=== PATIENT | female | born 1995 | race Caucasian/White ===

== ENCOUNTER 2021-02-19 16:30 | Emergency (ER) | payer MEDICAID, SELFPAY ==
[2021-02-19 18:01] VITALS: BP 143/102; PULSE 106; RESP 18; TEMP 36.7; O2SAT 96; BMI 41.5
[2021-02-19 18:30] LABS: COVID-19 Test Negative (Negative)
--- NOTE | 2021-02-19 20:53 | ED.URI ---
HPI - URI/Sore Throat General Chief Complaint: Upper Respiratory Symptoms Stated Complaint: cough sore throat Time Seen by Provider: 02/19/21 20:53 History of Present Illness HPI Narrative: Patient complains of mild sore throat runny nose , no shortness of breath no chest pain no abdominal pain no nausea vomiting Related Data Allergies Allergy/AdvReac Type Severity Reaction Status Date / Time No Known Allergies Allergy Verified 02/19/21 18:05 Review of Systems Review of Systems: Negatives are no fever no chills no dizziness no weakness no fainting no headache no stiff neck no chest pain no shortness of breath no abdominal pain no nausea vomiting or diarrhea Yes all other systems are reviewed and are negative PMFSH Past Medical History Source: nursing notes reviewed Medical History (Updated 02/20/21 @ 00:02 by Ada Ruth) Asthma Sickle cell anemia Social History Social History Advance Directives: No Advance Directives Information Provided: Yes Physical Exam Vital Signs: Vital Signs: Last Vital Signs Temp 98.1 F 02/19/21 18:01 Pulse 106 H 02/19/21 18:01 Resp 18 02/19/21 18:01 BP 143/102 H 02/19/21 18:01 Pulse Ox 96 02/19/21 18:01 BMI result Body Mass Index 41.5 General appearance no acute distress The eyes no redness or discharge The sinuses are nontender The pharynx no redness swelling or exudate, mucous membranes are moist Neck is supple The chest is clear to auscultation bilateral Heart no murmur Abdomen soft nontender Extremities full range of motion times Course Course Course Narrative: COVID testing was negative but patient has very typical COVID symptoms and other family members she lives with have COVID so I advised her the test is probably mistaken and she likely has COVID Shows very well appearing and was discharged MDM - URI/Sore Throat Lab Data Labs: Lab Results 02/19/21 Range/Units 18:08 COVID-19 ([facility]ENIA) Negative (Negative) COVID-19 Clin Com See Note Discharge Plan Discharge Clinical Impression: Acute viral syndrome Patient Disposition: Home, Self-Care Additional Instructions: COVID test was negative but can miss some cases Because you have other family members with COVID and have typical symptoms be careful to wear mask and stay out of crowded places to protect others Your well-appearing today but if anything gets worse you should return to the ER any time Interventions: ED Discharge Assessment Last Done: 02/19/21 21:17 Discharge Date/Time: 02/19/21 21:20
--- NOTE | 2021-02-19 21:17 | PC.NURSE ---
patient wasnt seen by this nurse, pt was discharged by provider
== END 2021-02-19 21:20 | disposition home or self-care (01) ==
PROVIDERS: Emergency Provider Emergency Medicine Emergency Medical Services
DX: B34.9 Viral infection, unspecified (principal); J45.909 Unspecified asthma, uncomplicated; Z20.822 Contact with and (suspected) exposure to COVID-19
CPT/HCPCS: 36415; 87635; 99283

== ENCOUNTER 2022-03-14 01:51 | Emergency (ER) | payer MEDICAID, SELFPAY ==
--- NOTE | ~2022-03-14 | CT_ITS ---
EXAMINATION: CT ABDOMEN AND PELVIS WITHOUT CONTRAST CLINICAL INFORMATION: Left lower quadrant pain COMPARISON: None TECHNIQUE: Multidetector volumetric imaging was performed from the superior aspect of the liver through the pubic symphysis. Sagittal and coronal reformatted images were obtained on the technologist's workstation. This CT examination was performed using dose optimization techniques as appropriate, variously including the following: *Automated exposure control *Adjustment of mA and/or kV according to patient size (this includes techniques or standardized protocols for targeted exams where dose is matched to indication/reason for exam; i.e. extremities or head) *Use of iterative reconstruction technique DLP: 1263 mGy-cm FINDINGS: LUNG BASES: The visualized lung bases are unremarkable. LIVER, GALLBLADDER, AND BILIARY TREE: The liver is normal in size, shape, and attenuation. No focal hepatic lesion or biliary ductal dilatation is present. Cholecystectomy. PANCREAS: Unremarkable. SPLEEN: Unremarkable. ADRENAL GLANDS: Unremarkable. KIDNEYS AND URETERS: The kidneys are normal in size, shape, and attenuation. No hydronephrosis, hydroureter, or calculi seen. No perinephric stranding. BLADDER: Unremarkable. GASTROINTESTINAL TRACT: The stomach is unremarkable. Normal caliber small bowel. No obstruction. Normal appendix. No colonic wall thickening or inflammation. No free air or free fluid. ABDOMINAL WALL: No abdominal wall hernia. Soft tissue density anterior to the rectus musculature at the pelvis. This may be scarring. LYMPH NODES: No lymphadenopathy. Appearance of a yulia mesentery . VASCULAR: Unremarkable. PELVIC VISCERA: The uterus and adnexa are unremarkable. OSSEOUS STRUCTURES: Unremarkable. CT/CT abdomen pelvis wo IV con IMPRESSION: No acute findings in the abdomen or pelvis. No inflammatory changes. Fleischner guidelines were followed.
[2022-03-14 01:53] VITALS: BP 139/84; PULSE 126; RESP 18; TEMP 36.8; O2SAT 97; BMI 51.5
--- NOTE | 2022-03-14 02:09 | ED_ITS ---
HPI - Abdominal Pain General Chief Complaint: Abdominal Pain Stated Complaint: left lower abd pain Time Seen by Provider: 03/14/22 02:08 Source: patient Mode of arrival: ambulatory Limitations: no limitations History of Present Illness HPI narrative: Patient with no significant past medical history complaining of left lower abdominal pain off and on for few days but got worse for last 24 hours increases on ambulation, no nausea no vomiting no diarrhea no blood in stool no urinary symptoms patient does have a family history of kidney stone but patient never had kidney stones denies any urinary symptoms has a good appetite patient also has history of ovarian cyst Related Data Previous Rx's Medication Instructions Recorded ibuprofen 600 mg tablet 600 mg PO Q6H PRN fever or pain 03/14/22 #30 tabs Allergies Allergy/AdvReac Type Severity Reaction Status Date / Time No Known Allergies Allergy Verified 02/19/21 18:05 Review of Systems Review of Systems Yes all other systems are reviewed and are negative [facility] Past Medical History Medical History Asthma Sickle cell anemia Social History Social History Alcohol intake: never Smoked in Last 30 Days: No Use of substances other than those prescribed or required for medical reasons: No Advance Directives: No Advance Directives Information Provided: Yes Physical Exam ED Vital Signs: Vital Signs - 24 hr 03/14/22 01:53 03/14/22 03:38 Temperature 98.3 F 98.1 F Pulse Rate 126 H 114 H Respiratory Rate 18 20 Blood Pressure 139/84 114/61 Pulse Oximetry 97 97 Oxygen Delivery Method Room Air Room Air BMI result Body Mass Index 51.5 Appearance: Alert. Oriented X3. No acute distress. Obese patient Eyes: No pallor/ icterus ENT: Pharynx normal. Oral Mucosa moist Neck: Normal inspection. Neck supple. CVS: Normal heart rate and rhythm. Pulses normal. Respiratory: No respiratory distress. Equal air entry bilateral, no wheezing/rales/rhonchi Abdomen: Soft the deep tenderness left lower quadrant , Bowel sounds are present, no mass palpable, no CVA tenderness Skin: Skin warm and dry. Normal skin color. Normal skin turgor. Extremities: No lower extremity edema. No calf tenderness Neuro: Oriented X 3. No motor deficit. Medical Decision Making Medical Decision Making MDM Narrative: Patient's CT scan negative for acute labs are stable possible patient had ovarian cyst which has ruptured no free fluid in the pelvis patient looks comfortable discharge patient home Lab Data 03/14/22 02:14 03/14/22 02:14 Labs: Lab Results 03/14/22 03/14/22 03/14/22 Range/Units 02:14 02:14 02:24 WBC 8.8 (4.8-10.8) X10*3/uL RBC 4.81 (4.20-5.50) X10*6/uL Hgb 11.9 L (12.0-16.0) g/dl Hct 35.5 L (37.0-47.0) % MCV 73.8 L (80.0-98.0) fL MCH 24.7 L (27.0-33.0) pg MCHC 33.5 (31.0-35.0) g/dl RDW 14.3 (11.0-16.0) % Plt Count 387 (160-400) X10*3/uL MPV 9.5 (9.4-12.3) fL Immature Gran % (Auto) 0.2 (0.0-0.4) % Neut % (Auto) 44.3 L (45-73) % Lymph % (Auto) 44.0 H (20-40) % [place] % (Auto) 8.8 (2-11) % Eos % (Auto) 2.2 (0-4) % Baso % (Auto) 0.5 (0-2) % Lymph # (Auto) 3.9 (1.2-4.9) X10*3/uL [place] # (Auto) 0.8 (0.1-1.2) X10*3/uL Eos # (Auto) 0.2 (0.0-0.4) X10*3/uL Baso # (Auto) 0.0 (0.0-0.2) X10*3/uL Abs Immat Gran (auto) 0.02 (0.00-0.03) X10*3/uL Absolute Neuts (auto) 3.9 (2.0-8.3) x10*3/uL Absolute Nucleated RBC 0.000 (0.0-0.012) X10*3/uL Nucleated RBC % (auto) 0.0 (0.0-0.2) /100WBC Sodium 139 (135-145) mmol/L Potassium 4.3 (3.3-5.1) mmol/L Chloride 103 (96-108) mmol/L Carbon Dioxide 25 (22-29) mmol/L Anion Gap 15 (12-20) BUN 10 (9-16) mg/dL Creatinine 0.69 (0.5-1.4) mg/dL Estim Creat Clear Calc 168.6 Estimated GFR > 60 Random Glucose 110 (60-115) mg/dL Calcium 9.5 (8.4-10.2) mg/dL Total Bilirubin < 0.2 (0.0-1.0) mg/dL Direct Bilirubin < 0.2 (0.0-0.5) mg/dL AST 14 (5-31) U/L ALT 12 (0-31) U/L Alkaline Phosphatase 56 (39-117) U/L Total Protein 7.6 (6.5-8.0) g/dL Albumin 3.8 (3.5-5.0) g/dL Urine Color Yellow Urine Appearance Clear Urine pH 5.0 (5.0-9.0) Ur Specific [place] 1.015 (1.005-1.025) Urine Protein Negative (Neg-Trace) mg/dL Urine Glucose (UA) Negative (Negative) mg/dL Urine Ketones Negative (Negative) mg/dL Urine Blood Negative (Negative) Urine Nitrite Negative (Negative) Ur Leukocyte Esterase Negative (Negative) Urine Test (NEGATIVE) 03/14/22 Range/Units 02:24 WBC (4.8-10.8) X10*3/uL RBC (4.20-5.50) X10*6/uL Hgb (12.0-16.0) g/dl Hct (37.0-47.0) % MCV (80.0-98.0) fL MCH (27.0-33.0) pg MCHC (31.0-35.0) g/dl RDW (11.0-16.0) % Plt Count (160-400) X10*3/uL MPV (9.4-12.3) fL Immature Gran % (Auto) (0.0-0.4) % Neut % (Auto) (45-73) % Lymph % (Auto) (20-40) % [place] % (Auto) (2-11) % Eos % (Auto) (0-4) % Baso % (Auto) (0-2) % Lymph # (Auto) (1.2-4.9) X10*3/uL [place] # (Auto) (0.1-1.2) X10*3/uL Eos # (Auto) (0.0-0.4) X10*3/uL Baso # (Auto) (0.0-0.2) X10*3/uL Abs Immat Gran (auto) (0.00-0.03) X10*3/uL Absolute Neuts (auto) (2.0-8.3) x10*3/uL Absolute Nucleated RBC (0.0-0.012) X10*3/uL Nucleated RBC % (auto) (0.0-0.2) /100WBC Sodium (135-145) mmol/L Potassium (3.3-5.1) mmol/L Chloride (96-108) mmol/L Carbon Dioxide (22-29) mmol/L Anion Gap (12-20) BUN (9-16) mg/dL Creatinine (0.5-1.4) mg/dL Estim Creat Clear Calc Estimated GFR Random Glucose (60-115) mg/dL Calcium (8.4-10.2) mg/dL Total Bilirubin (0.0-1.0) mg/dL Direct Bilirubin (0.0-0.5) mg/dL AST (5-31) U/L ALT (0-31) U/L Alkaline Phosphatase (39-117) U/L Total Protein (6.5-8.0) g/dL Albumin (3.5-5.0) g/dL Urine Color Urine Appearance Urine pH (5.0-9.0) Ur Specific [place] (1.005-1.025) Urine Protein (Neg-Trace) mg/dL Urine Glucose (UA) (Negative) mg/dL Urine Ketones (Negative) mg/dL Urine Blood (Negative) Urine Nitrite (Negative) Ur Leukocyte Esterase (Negative) Urine Test NEGATIVE (NEGATIVE) Medications Administered Discontinued Medications Generic Name Dose Route Start Last Admin Trade Name Freq PRN Reason Stop Dose Admin Sodium Chloride 1,000 mls @ 999 mls/hr 03/14/22 02:17 03/14/22 03:40 Ns IV 03/14/22 03:17 Infused .Q1H1M ONE Infusion Ketorolac Tromethamine 30 mg 03/14/22 02:17 03/14/22 02:34 Ketorolac Tromethamine 30 Mg/Ml Vial IVPUSH 03/14/22 02:18 30 mg ONCE ONE Administration Discharge Plan Discharge Clinical Impression: Abdominal pain Patient Disposition: Home, Self-Care Instructions: Abdominal Pain (ED) Additional Instructions: Cause of abdominal pain is not very clear Your CT scan of the abdomen and labs are normal Ibuprofen for pain Follow with PCP La causa del dolor abdominal no est? muy andra Barahona tomograf?a computarizada del abdomen y los laboratorios son normales ibuprofeno para el dolor Seguir con PCP Prescriptions: New ibuprofen 600 mg tablet 600 mg PO Q6H PRN (Reason: fever or pain) Qty: 30 0RF Interventions: ED Discharge Assessment Last Done: 03/14/22 04:19 Discharge Date/Time: 03/14/22 04:18 Print Language: Azeri
[2022-03-14 02:18] LABS: MANUAL DIFF FLAG NO
[2022-03-14 02:19] LABS: Basophils Percent Auto 0.5 % (0-2); Eosinophils Absolute Auto 0.2 X10*3/uL (0.0-0.4); Eosinophils Percent Auto 2.2 % (0-4); Hematocrit 35.5 % (37.0-47.0); Hemoglobin 11.9 g/dl (12.0-16.0); Imm Gran Abs Auto 0.02 X10*3/uL (0.00-0.03); Imm Gran Pct Auto 0.2 % (0.0-0.4); Lymphocytes Absolute Auto 3.9 X10*3/uL (1.2-4.9); Mean Corpuscular HGB Conc 33.5 g/dl (31.0-35.0); Mean Corpuscular Hemoglobin 24.7 pg (27.0-33.0); Mean Corpuscular Volume 73.8 fL (80.0-98.0); Mean Platelet Volume 9.5 fL (9.4-12.3); Monocytes Absolute Auto 0.8 X10*3/uL (0.1-1.2); Monocytes Percent Auto 8.8 % (2-11); Neutrophils Absolute Auto 3.9 x10*3/uL (2.0-8.3); Neutrophils Percent Auto 44.3 % (45-73); Platelet Count 387 X10*3/uL (160-400); Red Blood Count 4.81 X10*6/uL (4.20-5.50); Red Cell Distribution Width 14.3 % (11.0-16.0); White Blood Count 8.8 X10*3/uL (4.8-10.8)
[2022-03-14 02:32] LABS: Appearance Urine Clear; Color Urine Yellow; Glucose Urine UA Negative (Negative); Leukocyte Esterase Urine Negative (Negative); Nitrite Urine Negative (Negative); Specific Gravity - Urine 1.015 (1.005-1.025); Urine Blood Negative (Negative); Urine Ketones Negative (Negative); Urine Protein Negative (Neg-Trace)
[2022-03-14 02:33] LABS: UPreg QC Valid YES; Urine Pregnancy NEGATIVE (NEGATIVE)
[2022-03-14] MEDS: 0.9 % Sodium Chloride 1,000 ML 999 ML IV (02:34)
[2022-03-14] MEDS: Ketorolac Tromethamine 30 MG/ML VIAL IVPUSH (02:34)
[2022-03-14 02:53] LABS: Alanine Aminotransferase 12 U/L (0-31); Albumin Level 3.8 g/dL (3.5-5.0); Alkaline Phosphatase 56 U/L (39-117); Anion Gap 15 (12-20); Aspartate Amino Transferase 14 U/L (5-31); Bilirubin Direct < 0.2 mg/dL (0.0-0.5); Bilirubin Total < 0.2 mg/dL (0.0-1.0); Blood Urea Nitrogen 10 mg/dL (9-16); Calcium 9.5 mg/dL (8.4-10.2); Carbon Dioxide 25 mmol/L (22-29); Chloride 103 mmol/L (96-108); Creatinine Clr Calc Pharmacy 168.6; Estimated Glomerular Filt Rate > 60; Glucose Random 110 mg/dL (60-115); Potassium 4.3 mmol/L (3.3-5.1); Sodium 139 mmol/L (135-145); Total Protein 7.6 g/dL (6.5-8.0)
[2022-03-14 03:38] VITALS: BP 114/61; PULSE 114; RESP 20; TEMP 36.7; O2SAT 97
--- NOTE | 2022-03-14 04:17 | PC.NURSE ---
Discharge instructions given and explained. Ambulates safely/independently. No apparent distress.
--- NOTE | 2022-03-14 04:18 | PC.NURSE ---
IV cath tip intact upon removal
== END 2022-03-14 04:18 | disposition home or self-care (01) ==
PROVIDERS: Emergency Provider Internal Medicine
DX: R10.32 Left lower quadrant pain (principal)
CPT/HCPCS: 36415; 74176; 80053; 81003; 81025; 82248; 85025; 96361; 96374; 99284; J1885

== ENCOUNTER 2023-01-29 10:13 | Outpatient (REF) | payer MEDICAID, SELFPAY ==
[2023-01-29 11:30] LABS: MANUAL DIFF FLAG NO
[2023-01-29 11:42] LABS: Basophils Percent Auto 0.5 % (0-2); Eosinophils Absolute Auto 0.1 X10*3/uL (0.0-0.4); Eosinophils Percent Auto 1.7 % (0-4); Hematocrit 35.1 % (37.0-47.0); Hemoglobin 11.3 g/dl (12.0-16.0); Imm Gran Abs Auto 0.02 X10*3/uL (0.00-0.03); Imm Gran Pct Auto 0.2 % (0.0-0.4); Lymphocytes Absolute Auto 2.4 X10*3/uL (1.2-4.9); Lymphocytes Percent Auto 29.4 % (20-40); Mean Corpuscular HGB Conc 32.2 g/dl (31.0-35.0); Mean Corpuscular Hemoglobin 23.3 pg (27.0-33.0); Mean Corpuscular Volume 72.2 fL (80.0-98.0); Mean Platelet Volume 9.7 fL (9.4-12.3); Monocytes Absolute Auto 0.6 X10*3/uL (0.1-1.2); Monocytes Percent Auto 7.2 % (2-11); Neutrophils Absolute Auto 4.9 x10*3/uL (2.0-8.3); Platelet Count 418 X10*3/uL (160-400); Red Blood Count 4.86 X10*6/uL (4.20-5.50); Red Cell Distribution Width 16.6 % (11.0-16.0); White Blood Count 8.1 X10*3/uL (4.8-10.8)
[2023-01-29 11:45] LABS: Estimated Average Glucose 117 mg/dL; Hemoglobin A1c % 5.7 % (<6.0)
[2023-01-29 12:29] LABS: Alanine Aminotransferase 14 U/L (0-31); Alkaline Phosphatase 58 U/L (39-117); Anion Gap 12 (12-20); Aspartate Amino Transferase 16 U/L (5-31); Bilirubin Direct 0.1 mg/dL (0.0-0.5); Bilirubin Total 0.3 mg/dL (0.0-1.0); Blood Urea Nitrogen 10 mg/dL (9-16); Calcium 9.2 mg/dL (8.4-10.2); Carbon Dioxide 26 mmol/L (22-29); Chloride 104 mmol/L (96-108); Cholesterol 140 mg/dL (<200); Estimated Glomerular Filt Rate > 60; Glucose Random 89 mg/dL (60-115); HDL Cholesterol 59 mg/dL (>40); LDL Cholesterol Calculated 56 mg/dL (<100); Sodium 138 mmol/L (135-145); Total Protein 8.1 g/dL (6.5-8.0); Triglycerides 125 mg/dL (<150)
[2023-01-29 12:33] LABS: HIV AB/AG Nonreactive (Nonreactive); HIV Num 1 0.04 S/CO (0.00-0.99); ~HepC Num1 0.18 S/CO (0.00-0.79); ~Hepatitis C Antibody Nonreactive (Nonreactive)
[2023-01-29 17:08] LABS: CT PCR NOT DETECTED (Not Detect.); NG PCR NOT DETECTED (Not Detect.)
[2023-02-01 04:49] LABS: HCG Tumor Marker <5 mIU/mL
[2023-02-03 18:35] LABS: RPR Rapid Plasma Reagin REACTIVE (NON-REACTIVE)
== END 2023-01-29 10:14 | disposition home or self-care (01) ==
LOC: HO.HHCL 10:13
PROVIDERS: Visit Provider Family Medicine
DX: Z11.4 Encounter for screening for human immunodeficiency virus [HIV] (principal); Z11.3 Encounter for screening for infections with a predominantly sexual mode of transmission; E66.01 Morbid (severe) obesity due to excess calories; N91.2 Amenorrhea, unspecified
CPT/HCPCS: 0353U; 36415; 80048; 80061; 80076; 83036; 84443; 84702; 85025; 86592; 86593; 86803; 87389

== ENCOUNTER 2023-03-02 13:14 | Outpatient (REF) | payer MEDICAID, SELFPAY ==
[2023-03-02 16:34] LABS: Iron 24 mcg/dL (30-160); Percent Iron Saturation 6 % (15-50); Total Iron Binding Capacity 386 mcg/dL (228-428); Unsaturated Iron Binding 362 ug/dL
[2023-03-02 16:52] LABS: Ferritin 16 ng/mL (10-122)
[2023-03-02 17:15] LABS: Vitamin B12 362 pg/mL (200-900)
[2023-03-03 07:14] LABS: Syphilis Screen Reactive (Nonreactive)
[2023-03-08 15:38] LABS: RPR Quantitative Reactive 1:1 (Nonreactive)
[2023-03-08 15:39] LABS: T.Pallidum Particle Agg Test Reactive (Nonreactive)
== END 2023-03-02 13:15 | disposition home or self-care (01) ==
LOC: HO.HHCL 13:14
PROVIDERS: Visit Provider Family Medicine
DX: D64.9 Anemia, unspecified (principal); A53.0 Latent syphilis, unspecified as early or late
CPT/HCPCS: 36415; 82607; 82728; 83540; 86592; 86780

== ENCOUNTER 2024-01-07 | Outpatient (REF) | payer MEDICAID, SELFPAY | END 2024-01-07 00:01 | disposition home or self-care (01) | LOC: HO.LNP | PROVIDERS: Visit Provider Family Medicine | DX: Z12.4 Encounter for screening for malignant neoplasm of cervix (principal); R10.84 Generalized abdominal pain | CPT/HCPCS: 88175 ==

== ENCOUNTER 2024-04-26 09:53 | Outpatient (REF) | payer MEDICAID, SELFPAY ==
--- OUTSIDE RECORDS SUMMARY | 2024-04-26 11:40 | XMS_ITS | Clinical Summary ---
Author Organization [employer] Address [address] [facility] [address] [place] [address] Care Team Providers Care Store Director Name Role Phone Linh Pan MD Primary Care Provider [phone] Meghan Kinsey RN Unavailable [phone] Allergies No known active allergies Medications * This document contains information received from the source organization and may not represent a complete record from that organization. valsartan-hydroC HLOROthiazide (Diovan HCT) 80-12.5 MG tabletIndication s:Hypertension, unspecified type Take 1 tablet by mouth Once per day. 30 tablet 11 01/07/2024 Active Active Problems Problem Noted Date Diagnosed Date Somnolence, daytime 03/03/2024 Overview (03/03/2024): -high risk for LISE given symptoms and BMI 61 kg/m2 -referral to sleep medicine placed 03/03/2024 Assessment & Plan (03/03/2024 10:18 AM EST): -high risk for LISE given symptoms and BMI 61 kg/m2 -referral to sleep medicine placed 03/03/2024 Mild anxiety 02/19/2024 Assessment & Plan (03/03/2024 12:18 PM EST): During IBH Consult Lynn presenting with depressed mood, Tearful, crying spells , hopelessness, irritable mood, loss of interests/pleasure , sense of isolation/loneliness , isolating, change in appetite or weight reduce appetite, changes in sleep difficulty falling asleep and difficulty staying asleep , psychomotor retardation, worthlessness, inappropriate/excessive guilt , difficulty concentrating, indecisiveness, excessive worry/anxiety, difficulty controlling worry, anxiety/worry associated to easily fatigued , difficulty concentrating and/or mind going blank , irritability, muscle tension , and sleep disturbance difficulty falling asleep and difficulty staying asleep , and Fear , and Recurrent panic attacks (abrupt surge of intese vicente or discomfort that reaches peak within minutes and during which time the following occur (4 or more) sensation of shortness of breath/smothering, Chest pain/discomfort; for a period of 6-12 mo, for most or all symptoms in the context of family issues and illness or family illness. Lynn reported sxs continue to be the same. She has experienced few episodes of panic attacks. Currently she's going through different stressors associated with her family and medical condition. Explored strategies to use daily. Lynn likes writing. She is willing to start writing journey recording her emotions and triggers associated with them. Pt has positive support from her partner and mother. clinician engaged patient with active/reflective listening. Reviewed and assessed for risk, current stressors and protective factors using open-ended questions. Explored mechanisms and strategies to use when feeling anxious. Pt is aware of maladaptive behaviors and the impact on her medical/mental health. Pt agreed to be connected with a therapist and would like to start medication management as well. Provided [facility] information and [facility] help line. Assessment & Plan (02/19/2024 10:22 AM EST): During IBH Consult Lynn presenting with irritable mood, sense of isolation/loneliness , isolating, change in appetite or weight overeating, changes in sleep difficulty falling asleep and difficulty staying asleep , psychomotor retardation, fatigue/loss of energy, worthlessness, inappropriate/excessive guilt , difficulty concentrating, indecisiveness and excessive worry/anxiety, difficulty controlling worry, and anxiety/worry associated to restlessness and/or feeling keyed-up/On edge , easily fatigued , irritability, and sleep disturbance difficulty falling asleep and difficulty staying asleep ; for a period of 6-12 mo, for most or all symptoms in the context of unable to identify significant stressors. Pt reported sxs have been always there but she was able to manage in the past. Lost care with therapist from [facility] months ago; pt had positive feedback about CBT treatment and would like to re-engage in services. Her sleeping problem is adding anxiety and stress into her daily routine. Pt receives positive support from her partner and her mother. Not taking medication currently. clinician engaged patient with active/reflective listening. Reviewed and assessed for risk, current stressors and protective factors using open-ended questions. Explored mechanisms and strategies to use when feeling anxious. Pt is aware of maladaptive behaviors and the impact on her medical/mental health. Pt will discuss medication for sleeping problem with her PCP on 03/03. Information provided to contact [facility] per pt's request. clinician will touch base w pt during next medical appt and provide additional support. Generalized abdominal pain 01/07/2024 Overview (03/03/2024): Seen at [facility] ED on 10/09/23 for abd pain. ABD/PELV CT: concerned for a rectus sheath hematoma, 5.9 x 4.3 x 4.3 cm hyper dense area eminating from the left rectus muscle and extending into the subcutaneous tissues. Labs had a WBC 8.0, Hgb 11.2, normal UA, normal LFT's and normal electrolytes. HCG-urine negative. -Recommending a follow-up CT in a few weeks. -I was not aware of this finding as the results were not sent to the PCP. -ordered repeat CT abd/pel as well as abdominal US 01/07/24 -Pt was also treated for presumed PID 01/07/24 and abdominal pain improved -CT 01/25/24 Unchanged 5.9 cm hyperdense mass with hazy irregular borders arising from the left rectus muscle and extending into the subcutaneous soft tissure. 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 -03/03/23 pt reports some discomfort in area of lower abdomen at bottom of pannus but not in pelvis Assessment & Plan (03/03/2024 10:11 AM EST): Seen at [facility] ED on 10/09/23 for abd pain. ABD/PELV CT: concerned for a rectus sheath hematoma, 5.9 x 4.3 x 4.3 cm hyper dense area eminating from the left rectus muscle and extending into the subcutaneous tissues. Labs had a WBC 8.0, Hgb 11.2, normal UA, normal LFT's and normal electrolytes. HCG-urine negative. -Recommending a follow-up CT in a few weeks. -I was not aware of this finding as the results were not sent to the PCP. -ordered repeat CT abd/pel as well as abdominal US 01/07/24 -Pt was also treated for presumed PID 01/07/24 and abdominal pain improved -CT 01/25/24 Unchanged 5.9 cm hyperdense mass with hazy irregular borders arising from the left rectus muscle and extending into the subcutaneous soft tissure. 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 -03/03/23 pt reports some discomfort in area of lower abdomen at bottom of pannus but not in pelvis Assessment & Plan (01/07/2024 2:24 PM EST): Seen at [facility] ED on 10/09/23 for abd pain. ABD/PELV CT: concerned for a rectus sheath hematoma, 5.9 x 4.3 x 4.3 cm hyper dense area eminating from the left rectus muscle and extending into the subcutaneous tissues. Labs had a WBC 8.0, Hgb 11.2, normal UA, normal LFT's and normal electrolytes. HCG-urine negative. -Recommending a follow-up CT in a few weeks. -I was not aware of this finding as the results were not sent to the PCP. -ordered repeat CT abd/pel as well as abdominal US 01/07/24 Papanicolaou smear for cervical cancer screening 01/07/2024 Overview (01/27/2024): Hx of syphilis, at increased risk for HPV. Pap 01/07/24 NILM -next due 01/06/27 Assessment & Plan (01/07/2024 1:47 PM EST): Hx of syphilis, at increased risk for HPV. Pap with HPV testing done 01/07/24 STI testing offered, PreP offered Preventative care and harm reduction discussed Abnormal CT of the abdomen 01/07/2024 Overview (03/03/2024): Seen at [facility] ED on 10/09/23 for abd pain, had ABD/PELV CT which revealed concerned for a rectus sheath hematoma, 5.9 x 4.3 x 4.3 cm hyper dense area eminating from the left rectus muscle and extending into the subcutaneous tissues. Recommending a follow-up CT in a few weeks. I was not aware of this finding as the results were not sent to the PCP. Labs had a WBC 8.0, Hgb 11.2, normal UA, normal LFT's and normal electrolytes. HCG-urine negative. -ordered repeat CT abd/pelv 01/07/24 -CT abd pelvis 01/25/24 revealed unchanged 5.9 cm hyperdense mass with hazy irregular borders arising from the left rectus muscle and extending into the subcutaneous soft tissue. 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 Assessment & Plan (03/03/2024 10:10 AM EST): Seen at [facility] ED on 10/09/23 for abd pain, had ABD/PELV CT which revealed concerned for a rectus sheath hematoma, 5.9 x 4.3 x 4.3 cm hyper dense area eminating from the left rectus muscle and extending into the subcutaneous tissues. Recommending a follow-up CT in a few weeks. I was not aware of this finding as the results were not sent to the PCP. Labs had a WBC 8.0, Hgb 11.2, normal UA, normal LFT's and normal electrolytes. HCG-urine negative. -ordered repeat CT abd/pelv 01/07/24 -CT abd pelvis 01/25/24 revealed unchanged 5.9 cm hyperdense mass with hazy irregular borders arising from the left rectus muscle and extending into the subcutaneous soft tissue. 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 Assessment & Plan (01/07/2024 2:17 PM EST): Seen at [facility] ED on 10/09/23 for abd pain, had ABD/PELV CT which revealed concerned for a rectus sheath hematoma, 5.9 x 4.3 x 4.3 cm hyper dense area eminating from the left rectus muscle and extending into the subcutaneous tissues. Recommending a follow-up CT in a few weeks. I was not aware of this finding as the results were not sent to the PCP. Labs had a WBC 8.0, Hgb 11.2, normal UA, normal LFT's and normal electrolytes. HCG-urine negative. -ordered repeat CT abd/pelv 01/07/24 Cervical cancer screening 01/07/2024 Overview (03/03/2024): Pap 01/07/24 NILM -next due 01/06/27 Assessment & Plan (01/07/2024 1:46 PM EST): Pap with HPV testing done 01/07/24 Iron deficiency anemia 01/07/2024 Overview (03/03/2024): Ordered labs 01/07/24. She did not get them done but agrees to go 03/03/23 Assessment & Plan (03/03/2024 10:12 AM EST): Ordered labs 01/07/24. She did not get them done but agrees to go 03/03/23 Assessment & Plan (01/07/2024 2:20 PM EST): Ordered labs 01/07/24 Hypertension 01/07/2024 Overview (03/03/2024): Dx 01/07/24 with home systolic in 180s -valsartan-hydrochlorothiazide started 80-12.5 mg 01/07/24 with good response -continue lifestyle modifications Assessment & Plan (03/03/2024 10:12 AM EST): Dx 01/07/24 with home systolic in 180s -valsartan-hydrochlorothiazide started 80-12.5 mg 01/07/24 with good response -continue lifestyle modifications Assessment & Plan (01/07/2024 2:31 PM EST): Elevated BP readings at the clinic in the past, today BP is also elevated. Pt reports elevated readings at home in the 180's systolic. Dx 01/07/24 -Continue lifestyle modifications -Will start valsartan-hydrochlorothiazide 80-12.5 mg 01/07/24 Other specified health status 03/13/2023 Overview (03/03/2024): -next physical exam due after 03/13/24 -eye care facilitated by [facility] -dental home is [facility] -cj care proxy filed 03/03/24 Assessment & Plan (03/13/2023 10:49 AM EST): -next physical exam due after 03/13/23 -eye care facilitated by -dental home is -cj care proxy Episode of recurrent major depressive disorder 0 03/13/2023 Overview (03/03/2024): No suicidial or homacidial ideation -re-referred to behavioral health 03/13/23. Lost contact -re-referred to behavior health 01/07/24 -seen again by behavior health 03/03/24 Assessment & Plan (03/03/2024 10:08 AM EST): No suicidial or homacidial ideation -re-referred to behavioral health 03/13/23. Lost contact -re-referred to behavior health 01/07/24 -seen again by behavior health 03/03/24 Assessment & Plan (02/19/2024 10:22 AM EST): During IBH Consult Lynn presenting with irritable mood, sense of isolation/loneliness , isolating, change in appetite or weight overeating, changes in sleep difficulty falling asleep and difficulty staying asleep , psychomotor retardation, fatigue/loss of energy, worthlessness, inappropriate/excessive guilt , difficulty concentrating, indecisiveness and excessive worry/anxiety, difficulty controlling worry, and anxiety/worry associated to restlessness and/or feeling keyed-up/On edge , easily fatigued , irritability, and sleep disturbance difficulty falling asleep and difficulty staying asleep ; for a period of 6-12 mo, for most or all symptoms in the context of unable to identify significant stressors. Pt reported sxs have been always there but she was able to manage in the past. Lost care with therapist from [facility] months ago; pt had positive feedback about CBT treatment and would like to re-engage in services. Her sleeping problem is adding anxiety and stress into her daily routine. Pt receives positive support from her partner and her mother. Not taking medication currently. clinician engaged patient with active/reflective listening. Reviewed and assessed for risk, current stressors and protective factors using open-ended questions. Explored mechanisms and strategies to use when feeling anxious. Pt is aware of maladaptive behaviors and the impact on her medical/mental health. Pt will discuss medication for sleeping problem with her PCP on 03/03. Information provided to contact [facility] per pt's request. clinician will touch base w pt during next medical appt and provide additional support. Assessment & Plan (01/07/2024 2:32 PM EST): Referred to behavioral health 03/13/23. Lost contact -re-referring to behavior health 01/07/24 Assessment & Plan (03/16/2023 10:54 AM EST): During IBH Consult Lynn presenting with depressed mood, loss of interests/pleasure , changes in sleep difficulty falling asleep, trouble concentrating, fatigue/loss of energy, hopelessness; for a period of 6-12 mo, for all symptoms in the context of divorce/separation, family issues, recent move, and housing. Lynn moved to [place] from [place] about a year ago. She recently ended her long-term relationship due to being unhealthy for her emotional wellbeing. Currently living in a detention with her two children. PLAN: (check all that apply) New/Additional Services needed PCP management Off-site services for , Behavioral Health Integration Plan External OP therapy referral , Patient Self Plan Patient to utilize skills provided in intervention , Patient to reach out to [facility] team as needed, Comply with medication , Patient to engage in OP BH therapy , and Patient to reach out to [facility] as needed. Referral for CM and OP individual therapy will be submitted. Information for BHN/intake provided in case sooner appointments are needed. Assessment & Plan (03/13/2023 10:56 AM EST): Referred to behavioral health 03/13/23 Housing insecurity 03/13/2023 Assessment & Plan (03/16/2023 10:54 AM EST): During IBH Consult Lynn presenting with depressed mood, loss of interests/pleasure , changes in sleep difficulty falling asleep, trouble concentrating, fatigue/loss of energy, hopelessness; for a period of 6-12 mo, for all symptoms in the context of divorce/separation, family issues, recent move, and housing. Lynn moved to [place] from [place] about a year ago. She recently ended her long-term relationship due to being unhealthy for her emotional wellbeing. Currently living in a detention with her two children. PLAN: (check all that apply) New/Additional Services needed PCP management Off-site services for BH, Behavioral Health Integration Plan External OP BH therapy referral , Patient Self Plan Patient to utilize skills provided in intervention , Patient to reach out to [facility] team as needed, Comply with medication , Patient to engage in OP BH therapy , and Patient to reach out to [facility] as needed. Referral for CM and OP individual therapy will be submitted. Information for BHN/intake provided in case sooner appointments are needed. History of syphilis 03/09/2023 Overview (02/18/2024): Dx 02/2023 on routine testing. Per Kaye at [facility] no hx on file, pt denies previous diagnosis or being treated. Recommendation is bicillin x3. Lab Results Component Value Date TREPPALAB Reactive (A) 03/02/2023 RPRQUANT Reactive 1:1 (A) 03/02/2023 -First Bicillin dose given 03/06/2022 Pt reports received call from [facility] stating she was Txd in [place] so doesn't need Tx. Telephone call placed to Conchita at [facility] to verify. She states received records from [place], pt was Txd in 2019, is not a new infection. Morbid obesity 01/29/2023 Overview (03/03/2024): Severe morbid obesity with BMI 61 kg/m2 with pain in pannus likely from chronic hematoma in abdominal sheath after fall in setting of pressure of body habitus. Comorbid condition of hypertension. 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 Comorbid condition of hypertension. -pt desires bariatric surgery -referral placed 03/03/2024 Resolved Problems Problem Noted Date Diagnosed Date Resolved Date History of anemia 01/07/2024 01/07/2024 Overview (01/07/2024): Ordered labs 01/07/24 Assessment & Plan (01/07/2024 2:16 PM EST): Ordered labs 01/07/24 Pelvic pain 01/07/2024 03/03/2024 Overview (01/07/2024): Suspect PID, will treat presumptively. -ordered trans vaginal pelvic US 01/07/24 -gave ceftriaxone 500 mg IM today 01/07/24 -prescribed Doxycyline and Metronidazole twice daily for 2 weeks. Assessment & Plan (01/07/2024 2:30 PM EST): Suspect PID, will treat presumptively. -ordered trans vaginal pelvic US 01/07/24 -gave ceftriaxone 500 mg IM today 01/07/24 -prescribed Doxycyline and Metronidazole twice daily for 2 weeks. Physical exam 03/13/2023 06/19/2023 Overview (03/13/2023): -Normal growth and development. -Anticipatory guidance discussed. -Preventative care / harm reduction discussed. Assessment & Plan (03/13/2023 10:16 AM EST): -Normal growth and development. -Anticipatory guidance discussed. -Preventative care / harm reduction discussed. History of eclampsia 01/29/2023 025 Apnea 01/29/2023 01/07/2024 Snoring 01/29/2023 01/07/2024 Elevated blood pressure reading 01/29/2023 02/18/2024 Overview (03/13/2023): Sent script for BP cuff and monitor 03/13/23 Assessment & Plan (03/13/2023 10:55 AM EST): Sent script for BP cuff and monitor 03/13/23 Encounters * This document contains information received from the source organization and may not represent a complete record from that organization. Date Type Department Care Team Description 04/25/[address] [id number] Meghan Kinsey RN 04/25/[address] [address] Linh Pan MD Appointment Request 04/25/[address] [address] Linh Pan MD Care Management (C3- initial assessment/ enrollment) 04/22/2024 Patient Outreach [address] [address] Linh Pan MD Care Coordination (CM/CHW appt reminder) 04/12/2024 Patient Outreach [address] [address] Linh Pan MD Care Coordination (CM/CHW outreach) 04/12/[address] [address] Linh Pan MD Care Management (C3- chart review) 03/03/2024 9:30 AM EST Office Visit [address] [address] Linh Pan MD Hypertension, unspecified type (Primary Dx); Morbid obesity (CMS/HCC); Somnolence, daytime; Abnormal CT of the abdomen; Generalized abdominal pain; Pelvic pain; Episode of recurrent major depressive disorder, unspecified depression episode severity (CMS/HCC); Exercise counseling; Dietary counseling; Encounter for immunization; Blurry vision; Other specified health status 03/03/2024 Refill [facility] [address] [place] [phone] Linh Pan MD Hypertension, unspecified type 03/03/2024 Travel 01/27/[address] [place] [address] Linh Pan MD No Show from Last 3 Months Immunizations Name Administration Dates Next Due Hep B, adult 03/03/2024,03/13/2023 Influenza injectable quadrivalent preservative f ree 03/13/2023 Influenza, seasonal, injectable, preservative fr ee 03/03/2024 Pfizer Covid-19 Vaccine 12+ 03/03/2024 Tdap 03/13/2023 Family History Medical History Relation Name Comments Developmental delay Son Salma Relation Name Status Comments Son Salma Alive Social History Tobacco Use Types Packs/Day Years Used Date Smoking Tobacco: Never Smokeless Tobacco: Never Tobacco Cessation:Counseling Given: Not Answered Alcohol Use Standard Drinks/Week Comments Never 0 (1 standard drink = 0.6 oz pur e alcohol) Depression Answer Date Recorded Patient Health Questionnaire-9 Score 12 03/03/2024 Patient Health Questionnaire-9 Score 12 03/03/2024 Last PHQ-9: Questionnaire Data Not on file 0 03/03/2024 Housing Stability Answer Date Recorded What is your housing situation today? I do not have housing (Staying with others, in a hotel, in a detention, living outside on the street, on a beach, in a car, or in a park 03/13/[address] you li ve. Do you have problems with any of the following? None of the above 03/13/2023 Food Insecurity Answer Date Recorded Within the past 12 months, y ou worried that your food would run out before you got money to buy more: Never True 03/13/2023 Within the past 12 months,th e food you bought just didn't last and you didn't have enough money to get more: Never True Transportation Answer Date Recorded In the past 12 months, has l ack of transportation kept you from medical appts, meetings, work or from getting things needed for daily living? No 03/13/2023 Depression Answer Date Recorded Patient Health Questionnaire-2 Score 2 03/03/2024 Comments Unknown Sex and Gender Information Value Date Recorded Sex Assigned at Female 01/29/2023 9:18 AM EST Legal Sex Female 9:11 AM EST Gender Identity Female 01/29/2023 9:18 AM EST Sexual Orientation Straight 01/29/2023 9: 18 AM EST Last Filed Vital Signs Vital Sign Reading Time Taken Comments Blood Pressure 132/84 03/03/2024 9:37 AM EST Pulse 72 03/03/2024 9:37 AM EST Temperature 36.7 ??C (98.1 ??F) 03/03/2024 9:37 AM ES T Respiratory Rate 21 03/03/2024 9:37 AM EST Oxygen Saturation 99% 01/07/2024 1:42 PM EST Inhaled Oxygen Concentration - - Weight 156 kg (343 lb) 03/03/2024 9:37 AM EST Height 160 cm (5' 3 ) 03/03/2024 9:37 AM EST Body Mass Index 60.76 03/03/2024 9:37 AM EST Plan of Treatment Upcoming Encounters Date Type Department Care Team (Late st Contact Info) Description 05/18/2024 4:00 PM EDT Office Visit [facility] [address] [place], [place] [id number] Linh Pan MD [address] [place], [place] [phone] Health Maintenance Due Date Last Done Comments Family Planning (PISQ) 2009 SDOH Screening 03/13/2024 03/13/2023 Hepatitis B Vaccines (3 of 3 - 19+ 3-dose series) 04/28/2024 03/03/2024, 03/13/2023 Depression Monitoring (PHQ-9) 08/31/2024, 03/03/2024 Alcohol/Substance Use Screening 03/03/2025 03/03/2024 Depression Screening 03/03/2025 03/03/2024, 03/03/2024 Tobacco Screening 03/03/2025 03/03/2024 Pap Smear 01/06/2027 01/07/2024 Lipid Panel 01/30/2028 01/29/2023 DTaP/Tdap/Td Vaccines (2 - T d or Tdap) 03/13/2033 03/13/2023 Zoster Vaccines (1 of 2) 2044 RSV Patients and Patients Aged 60 years or older (1 - 1-dose 75+ series) 2069 HIV Screening Completed 01/29/2023 Hepatitis C Screening Completed 01/29/2023 COVID-19 Vaccine Completed 03/03/2024 Influenza Vaccine Completed 03/03/2024, 03/13/2023 HIB Vaccines Aged Out No longer eligi ble based on patient's age to complete this topic HPV Vaccines Aged Out No longer eligi ble based on patient's age to complete this topic Hepatitis A Vaccines Aged Out No long er eligible based on patient's age to complete this topic IPV Vaccines Aged Out No longer eligi ble based on patient's age to complete this topic Meningococcal Vaccine Aged Out No vlad adriana eligible based on patient's age to complete this topic Pneumococcal Vaccine: Pediatrics (0 to 5 Years) and At-Risk Patients (6 to 49) Years) Aged Out No longer eligible b ased on patient's age to complete this topic RSV under 20 months Aged Out No longe r eligible based on patient's age to complete this topic Rotavirus Vaccines Aged Out No longer eligible based on patient's age to complete this topic Procedures Procedure Name Priority Date/Time Associated Diagnosis Comments PAP SMEAR Routine 01/07/2024 2:38 PM EST Generalized abdominal pain Cervical cancer screening HEPATITIS C AB W/REFL TO HCV RNA, QN, PCR Routine 01/29/2023 10:20 AM EST Routine screening for STI (sexually transmitted infection) HIV 1/2 ANTIGEN/ANTIBODY, FOURTH GENERATION W/RFL Routine 01/29/2023 10:20 AM EST Routine screening for STI (sexually transmitted infection) LIPID PANEL, STANDARD Routine 01/29/2023 10:20 AM EST Morbid obesity (CMS/HCC) from Last 3 Months or Most Recently Relevant to Health Maintenance Results * Pap Smear (01/07/2024 2:38 PM EST) Swab Cervical swab / Unknown 01/07/2024 2:38 PM EST 01/08/2024 9:30 AM EST [facility] - 01/12/2024 8:04 AM EST ----- ------- Name: TamLynn Quintero ? Age/Sex: 28/F ? : 1995 Unit#: [id number] ?? Attend Dr: Linh Pan MD ?Re01/07/24 ?Status: PRE REF ? Location: HO.LNP ?Disch: ? ----- ------- SPEC : [id number] ?RECD: 01/08/24 ? STATUS: ??SOUT ? REQ NUM: [id number] ? KERMIT: 01/07/24-0024 ? SUBM DR: Linh Pan MD ? ENTERED: ??01/08/24-1011 ?SP TYPE: Pap Smr ?OTHR DR: ? ORDERED: ??Pap Smear ? Interpretation ?? Satisfactory for evaluation. ?? Negative for intraepithelial lesion or malignancy. ?? Coccobacilli consistent with shift in vaginal raven. ?Clinical Information LMP: Unknown date Previous PAP test: Three years ago, WNL ? Material Received ?? ThinPrep-Cervical ----- ------- Signed (signature on file) AUSTYN Baron (ASCP) 01/12/24 0804 ? ----- ------- ? END OF REPORT ? us Linh Pan MD LAB CYTOLOGY ORDERABLES Fi nal Result [facility] [address] [place] [phone] * Hepatitis C Antibody with Reflex to HCV, RNA, Quantitative, Real-Time PCR (01/29/2023 10:20 AM EST) Pathologist [facility] Hepatitis C Antibody Nonreactive Nonreactive [facility] Comment:Antibodies to HCV no t detected; does not exclude early acuteHCV infection. Blood Venous blood specimen / Unknown 01/29/2023 10:20 AM EST 01/29/2023 11:19 AM EST Linh Pan MD LAB BLOOD ORDERABLES Final Result Performing Organization Address City/[facility]/ZIP Co de Phone Number [facility] [address] [place] [phone] * HIV-1/2 Antigen and Antibodies, Fourth Generation, with Reflexes (01/29/2023 10:20 AM EST) [facility] HIV AB/AG Nonreactive Nonreactive [facility] Comment:HIV-1 p24 Ag and/or HIV-1/HIV-2 Ab not detected.A test result that is nonreactive does not exclude thepossibility of exposure to or infection with HIV-1 and/orHIV-2. Nonreactive results in this assay for individualswith prior exposure to HIV-1 and/or HIV-2 may be due toantigen and antibody levels that are below the limit ofdetection of this assay.The [employer] HIV Ag/Ab Combo assay result andsupplemental assay results should be interpreted inconjunction with the patient's clinical presentation,history and other laboratory results. If the results areinconsistent with clinical evidence, additional testing issuggested to confirm the result. Blood Venous blood specimen / Unknown 01/29/2023 10:20 AM EST 01/29/2023 11:19 AM EST Linh Pan MD LAB BLOOD ORDERABLES Final Result Performing Organization Address City/[facility]/ZIP Co de Phone Number [facility] [address] [place] [phone] * Lipid Panel, Standard (01/29/2023 10:20 AM EST) [facility] Triglycerides 125 <150 mg/dL [facility] Comment:Desirable Triglyceri de: less than 150 mg/dLBorderline High Triglyceride 150-199 mg/dLHigh Triglyceride: 200-499 mg/dLVery High Triglyceride: greater than or equal to 5OO mg/dL Cholesterol 140 <200 mg/dL [facility] Comment:Desirable Cholestero l: less than 200 mg/dLBorderline High Cholesterol: 200-239 mg/dLHigh Cholesterol: greater than 239 mg/dL LDL Cholesterol Calculated 56 <100 mg/dL [facility] Comment:Desirable LDL: less than 100 mg/dLNear Optimal/Above Optimal LDL: 110- 129 mg/dLBorderline High LDL: 130-159 mg/dLHigh LDL: 160-189 mg/dLVery High LDL: greater than or equal to 190 mg/dL HDL Cholesterol 59 >40 mg/dL [facility] Comment:Desirable HDL: great er than 40 mg/dL Note: This HDL assay may give artificially low results in patients with liver disease. Blood Venous blood specimen / Unknown 01/29/2023 10:20 AM EST 01/29/2023 11:19 AM EST us Linh Pan MD LAB BLOOD ORDERABLES Final Result [facility] [address] [place] [phone] from Last 3 Months or Most Recently Relevant to Health Maintenance Insurance [facility] C3 Advance Directives Documents on File Type Date Recorded Patient Marble Installation Helper Expl anation Advance Directives and Living Will 03/03/2024 Health Care Proxy 03/03/24 Care Teams Store Director Relationship Specialty Start Date End Date Linh Pan MD [address] [place] [address] PCP - General Family Medicine 01/29/23 Meghan Kinsey RN [address] [place] [phone] Stereotyper ApprenticeEntry Level Administrative Assistant 04/25/24
--- OUTSIDE RECORDS SUMMARY | 2024-04-26 11:40 | XMS_ITS | Encounter Summary ---
Author Organization [employer] 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) Social History Tobacco Use Types Packs/Day Years Used Date Smoking Tobacco: Never Smokeless Tobacco: Never Alcohol Use Standard Drinks/Week Comments Never 0 (1 standard drink = 0.6 oz pur e alcohol) Comments Unknown Sex and Gender Information Value Date Recorded Sex Assigned at Female 01/29/2023 9:18 AM EST Legal Sex Female 9:11 AM EST Gender Identity Female 01/29/2023 9:18 AM EST Sexual Orientation Straight 01/29/2023 9: 18 AM EST documented as of this encounter Plan of Treatment Upcoming Encounters Date Type Department Care Team (Late st Contact Info) Description 05/18/2024 4:00 PM EDT Office Visit [facility] [address] [place] [address] [phone] Linh Pan MD [address] [place] [address] [phone] documented as of this encounter Procedures Procedure Name Priority Date/Time Associated Diagnosis Comments SYPHILIS SCREEN Routine 03/02/2023 1:15 PM EST Positive RPR test documented in this encounter Results * (ABNORMAL) Syphilis Screen (03/02/2023 1:15 PM EST) Syphilis Screen Reactive( A) Nonreactive [facility] Comment:Reactive specimens a re sent to the [facility]for confirmatory tests. Blood 03/02/2023 1:15 PM EST 03/02/2023 4:01 PM EST us Linh Pan MD LAB BLOOD ORDERABLES Final Result Performing Organization Address City/State/[facility] Co de Phone Number [facility] [address] [place] [phone] documented in this encounter Visit Diagnoses Diagnosis Positive RPR test- Primary documented in this encounter Care Teams Aws Consultant Relationship Specialty Start Date End Date Linh Pan MD [address] [place] [phone] PCP - General Family Medicine 01/29/23 Meghan Kinsey, RN [address] [place] [phone] Staff AccountantDental Technologist 04/25/24 documented as of this encounter
--- OUTSIDE RECORDS SUMMARY | 2024-04-26 11:40 | XMS_ITS | Encounter Summary ---
Author Organization [employer] Address [address] 7t [place] [address] Care Team Providers Care Order Packer Or Packager Name Role Phone Linh Pan MD Primary Care Provider [phone] Meghan Kinsey RN Unavailable [phone] Encounter Details Date Type Department Care Team (Late st Contact Info) Description 04/25/2024 Telephone [facility] [address] [place] [address] Meghan Kinsey, RN [address] [place] [address] Social History Tobacco Use Types Packs/Day Years [...] with others, in a hotel, in a fdc, living outside on the street, on a [...] AM EST documented as of this encounter Miscellaneous Notes * Telephone Encounter - Meghan Kinsey RN - 04/25/2024 12:17 PM EST CM [place] [facility] [place]. Patient is scheduled to be seen on 09/28/24 at 9:00am at [address] [place] [address] in [place]. CM [place] [facility] [place]. Informed patient completed the CT on 01/25/24. Advised they did not receive the orders for US pelvis or US abdomen. They are requesting that the orders, demographics, and officenotes be faxed to [phone]. Orders faxed as requested. documented in this encounter Plan of Treatment Upcoming Encounters Date Type Department Care Team (Late st Contact Info) Description 05/18/2024 4:00 PM EDT Office Visit [facility] [address] [place] [address] Linh Pan MD [address] [place] [address] documented as of this encounter Visit Diagnoses Not on filedocumented in this encounter Additional Health Concerns Assessment Noted Time PHQ-9 Depression Total Score: 12 025 11:57 AM EST documented as of this encounter Care Teams Order Packer Or Packager Relationship Specialty Start Date End Date Linh Pan MD [address] [place] [address] PCP - General Family Medicine 01/29/23 Meghan Kinsey RN [address] [place] [phone] Records AnalystInformatica Developer 04/25/24 documented as of this encounter
--- OUTSIDE RECORDS SUMMARY | 2024-04-26 11:40 | XMS_ITS | Encounter Summary ---
Author Organization [facility] Address [address] [facility] 7t [place] [address] Care Team Providers Care Child Psychologist Name Role Phone Linh Pan MD Primary Care Provider [phone] Reason for Visit * Reason Comments Care Coordination CM/CHW appt reminder Encounter Details Date Type Department Care Team (Latest Contact Info) Description 04/22/2024 Patient Outreach [facility] [address] [place] [address] Linh Pan MD [address] [place] [address] Care Coordination (CM/CHW appt reminder) Social History Tobacco Use Types Packs/Day Years [...] with others, in a hotel, in a skilled nursing, living outside on the street, on a [...] AM EST documented as of this encounter Progress Notes * Tanna Shields - 04/22/2024 10:58 AM EST CHW Tanna Shields placed outbound call to patient introducing herself from [facility] CM Department, in regard to remind patient of Adult Complex Care program initial assessment appt for tomorrow 04/25/24 @ 10AM via telephone with CM Meghan Kinsey RN. Patient's name and was confirmed. Patient is aware and confirmed will be available for call and has no barriers on attending call.Patient verbalized understanding and agrees with plan. documented in this encounter Plan of Treatment Upcoming Encounters Date Type Department Care Team (Late st Contact Info) Description 05/18/2024 4:00 PM EDT Office Visit [facility] [address] [place] [address] Linh Pan MD [address] [place] [address] documented as of this encounter Visit Diagnoses Not on filedocumented in this encounter Additional Health Concerns Assessment Noted Time PHQ-9 Depression Total Score: 12 025 11:57 AM EST documented as of this encounter Care Teams Child Psychologist Relationship Specialty Start Date End Date Linh Pan MD [address] [place] [address] PCP - General Family Medicine 01/29/23 documented as of this encounter
--- OUTSIDE RECORDS SUMMARY | 2024-04-26 11:41 | XMS_ITS | Encounter Summary ---
Author Organization [employer] Address [address] [facility] 7t [place] [address] Care Team Providers Care Strategic Consultant Name Role Phone Linh Pan MD Primary Care Provider [phone] Meghan Kinsey RN Unavailable [phone] Reason for Visit * Reason Onset Date Comments Care Management 04/25/2024 C3CM- initial as sessment/ enrollment Encounter Details Date Type Department Care Team ([facility] st Contact Info) Description 04/25/2024 Telephone [facility] [address] [place], [place] [phone] Linh Pan MD [address] [place], [place] [phone] Care Management (C3- initial assessment/ enrollment) Social History Tobacco Use Types Packs/Day Years [...] Encounter - Meghan Kinsey RN - 04/25/2024 11:15 AM EST QAMAR Kinsey RN, provided notification to PCP Dr. Pan of patient's enrollment into C3 Complex Care Program. QAMAR Kinsey RN, completed care plan and sent to HIM to be scanned into the medical record. PCP notified and awaiting review from provider. CM plan: - assist with scheduling appts with OP BH, [facility] Sleep [facility] Neuro, Bariatrics, and Optometry - assist with scheduling imaging - provide patient with appt reminders and transportation to scheduled visits as needed - provide education on disease processes and management of chronic conditions - provide patient with resources based on positive SDOH needs * Telephone Encounter - Meghan Kinsey RN - 04/25/2024 11:15 AM EST QAMAR Kinsey RN placed outbound call to patient for agreed upon time for initial assessment for enrollment into Adult Care Management Program. Patient's name, , and address were verified. Lynn is a 28 year old female with Hx of morbid obesity, syphilis, episode of recurrent major depressive disorder, generalized abdominal pain, iron deficiency anemia, HTN, anxiety, and somnolence. Patient also reports Hx of sickle cell anemia and hypoglycemia. Per patient, moved from [place] to [place] about 2 years ago. She is currently established with [facility]. [facility] of [facility] pain and hematoma. Patient has not followed up with PCP sincethe ED visit and is requesting an appointment for follow up of symptoms. Patient reports abdominal pain. She states the pain is constant but states it is mild now. Per patient, taking motrin which only provides mild relief. She reports experiencing a fever, chills, and nausea x4 days ago. She denies any of these symptoms now. Patient states the abdominal pain is related to the hematoma that she has in her abdomen. Per patient, is not sure why the hematoma is still present. She states PCP ordered a US several months ago but patient was never called with an appt. CM will assist with f/u. Per patient, referred to Bariatrics but needed eval from PCP first due to the hematoma. She states she didfollow up with PCP in February and would like to proceed with seeing Bariatrics. CM provided her with the office contact information and advised she call to scheduled an appt. She agrees. Patient reports experiencing anxiety, mostly at bedtime. She also reports having difficulty with sleep. She states she is usually awake at bedtime and is not able to sleep throughout the night. Per patient, used to take meds for anxiety and sleep when she lived in [place]. She states that when she became , about 13 years ago, she stopped taking the meds. She did have a consult with in February. Per patient, was not aware of the OP referral that was placed. QAMAR provided her with the office contact information and advised she call the office for follow up appt. She agrees. Patient is also scheduled to see psych on 05/26. She is aware of this visit. Patient also referred to [facility] Neuro and Sleep on 2022 for apnea. Per patient, was never contacted with an appt. She states this was one of the mainconcerns she brought up to the provider during her initial visit. QAMAR advised patient she did have an appt scheduled 06/2023 but patient no showed visit. CM will assist with scheduling a new visit. Sheagrees. Per patient, recently Dx with HTN. She states she is taking the valsartan-HCTZ daily as prescribed. Per patient, monitors her BP daily. She states her BP tends to be elevated when she is experiencing the abd pain. Per patient, BP this morning was 124/80 before taking Rx. She states she knows BP parameters and when to contact the office. She states she is also able to recognize sx of high BP. Patient also reports hx of sickle cell anemia. She states she mentioned this to PCP during initial visit. Per patient, was supposed to take folic acid daily but has not taken Rx in about 5 years. She is unsure what the plan for follow up is. She also reports Hx of hypoglycemia. Per patient, was Dx at the age of 12. She states she tends to experience episodes of low sugar in the mornings. Reports sx- nausea and diaphoresis. Per patient, does not have a monitor to check her sugars. CM informedpatient that there are active labs in her chart from 01/07/2024 which were ordered by PCP. Informedpatient of lab hours and advised that she complete them prior to her next f/u with PCP. CM will send message to PCP team to contact patient and schedule a f/u. Patient agrees. Patient is also requesting assistance with scheduling an appt with Optometry. States she has not had an eye exam since she was a child. Per patient, experiencing blurry vision for about 2 years now and in need of follow up.CM noted referral was placed to [facility] Optometry. CM will outreach the office and ludin assist with scheduling an appt. Patient also with several SDOH needs. OPAL Cisse will outreach to assist. Patient denies any further needs or concerns at this time. Care management program explained and contact information given. Patient verbalizes understanding, and able to repeat back to news writer. A follow up call will be placed within 10 days, patient agrees with plan. documented in this encounter Plan of Treatment Upcoming Encounters Date Type Department Care Team (Late st Contact Info) Description 05/18/2024 4:00 PM EDT Office Visit [facility] [address] [place] [phone] Linh Pan MD [address] [place], [place] [phone] documented as of this encounter Visit Diagnoses Not on filedocumented in this encounter Additional Health Concerns Assessment Noted Time PHQ-9 Depression Total Score: 12 025 11:57 AM EST documented as of this encounter Care Teams Strategic Consultant Relationship Specialty Start Date End Date Linh Pan MD [address] [place] [address] PCP - General Family Medicine 01/29/23 Meghan Kinsey RN [address] [place] [phone] Alternative Medicine PractitionerBreast Surgeon 04/25/24 documented as of this encounter
--- OUTSIDE RECORDS SUMMARY | 2024-04-26 11:41 | XMS_ITS | Encounter Summary ---
Author Organization [employer] [facility] Address [address] [facility] 7t [place] [address] Care Team Providers Care Plastics Sheet Finishing Press Operator Name Role Phone Linh Pan MD Primary Care Provider [phone] Reason for Visit * Reason Onset Date Comments Care Management 04/12/2024 [facility]- chart revi ew Encounter Details Date Type Department Care Team ([facility] st Contact Info) Description 04/12/2024 Telephone [facility] [address] [place] [address] Linh Pan MD [address] [place] [address] Care Management (C3CM- chart review) Social History Tobacco Use Types Packs/Day Years [...] with others, in a hotel, in a penitentiary, living outside on the street, on a [...] Telephone Encounter - Meghan Kinsey RN - 04/12/2024 9:25 AM EST QAMAR Kinsey RN, performed chart review, in anticipation of initial assessment with patient, as patient has stratified for C3 Adult Complex Care through the ADT feed. History significant for morbid obesity, episode of recurrent major depressive disorder, housing insecurity, generalized abdominal pain, iron deficiency anemia, HTN, mild anxiety, and daytime somnolence. Specialists include Behavioral Health, Psych, Optometry, Bariatrics, and Sleep Medicine. [facility]. Last appointment in PCP office on 03/03/24. Patient also seen by Psych on 03/03/24. Next appointment scheduled for 04/18/24 at 10:00am with Psych. documented in this encounter Plan of Treatment Upcoming Encounters Date Type Department Care Team (Late st Contact Info) Description 05/18/2024 4:00 PM EDT Office Visit [facility] [address] [place] [address] Linh Pan MD [address] [place], [place] [phone] documented as of this encounter Visit Diagnoses Not on filedocumented in this encounter Additional Health Concerns Assessment Noted Time PHQ-9 Depression Total Score: 12 025 11:57 AM EST documented as of this encounter Care Teams Plastics Sheet Finishing Press Operator Relationship Specialty Start Date End Date Linh Pan MD [address] [place] [address] PCP - General Family Medicine 01/29/23 documented as of this encounter
--- OUTSIDE RECORDS SUMMARY | 2024-04-26 11:41 | XMS_ITS | Encounter Summary ---
Author Organization [employer] [facility] Address [address] [facility] 7t [place] [address] Care Team Providers Care [employer] Name Role Phone Linh Pan MD Primary Care Provider [phone]- [phone] Reason for Visit * Reason Comments Care Coordination CM/CHW outreach Encounter Details Date Type Department Care Team (Latest Contact Info) Description 04/12/2024 Patient Outreach [facility] [address] [place], [place] [phone] Linh Pan MD [address] [place] [address] Care Coordination (CM/CHW outreach) Social History Tobacco Use Types Packs/Day Years [...] with others, in a hotel, in a senior living, living outside on the street, on a [...] encounter Progress Notes * Tanna Shields - 04/12/2024 3:15 PM EST CHW Tanna Shields, placed outbound call to patient introducing herself from [facility] CM Department, in regard to offering services. Patient's name and was confirmed. Patient agrees to participate in program. Appt. for initial assessment scheduled for 04/25/24 @ 10AM tele appt withQAMAR Kinsey RN. CHW reinforced direct contact information or for any additional questions or concerns and extended clinic hours on Mondays and Wednesdays, and Walk-In Urgent Care Located in [facility] of [facility]. Patient provided with after-hours line for [facility], , which offer nighttime triage service and option to transfer to computer operations analyst provider if needed. Patient verbalizes understanding, and able to repeat back to scientific writer. documented in this encounter Plan of Treatment Upcoming Encounters Date Type Department Care Team (Late st Contact Info) Description 05/18/2024 4:00 PM EDT Office Visit [facility] [address] [place] [address] Linh Pan MD [address] [place] [address] documented as of this encounter Visit Diagnoses Not on filedocumented in this encounter Additional Health Concerns Assessment Noted Time PHQ-9 Depression Total Score: 12 025 11:57 AM EST documented as of this encounter Care Teams [employer] Relationship Specialty Start Date End Date Linh Pan MD [address] [place] [address] PCP - General Family Medicine 01/29/23 documented as of this encounter
--- OUTSIDE RECORDS SUMMARY | 2024-04-26 11:41 | XMS_ITS | Encounter Summary ---
Author Organization [employer] [facility] Address [address] [place] [address] Care Team Providers Care [employer] Supervisor Name Role Phone Linh Pan MD Primary Care Provider [phone] Meghan Kinsey RN Unavailable [phone] Reason for Visit * Reason Onset Date Comments Appointment Request 04/25/2024 Encounter Details Date Type Department Care Team (Late st Contact Info) Description 04/25/2024 Telephone [facility] MEDICINE [address] [place], [place] [phone] Linh Pan MD [address] [place], [place] [phone] Appointment Request Social History Tobacco Use Types Packs/Day Years [...] encounter Miscellaneous Notes * Telephone Encounter - Mabel Ballard RN - 04/25/2024 1:35 PM EST Telephone call to pt using [employer] supervisor painting #[id number]. Pt declined to see other provider, advised that Dr Pan's soonest appt is 05/18/24 but if open to seeing other doctor, pt could be seen sooner. Pt declined seeing other provider. Scheduled for 05/18/24 at 4pm. Advised pt to call back [facility] if any questions or concerns develop before appt. Reviewed [facility] accreditation specialist 15/09, reviewed [facility] hours/extended hours and Thursday hours. Pt verbalized understanding, no further questions. * Telephone Encounter - Meghan Kinsey RN - 04/25/2024 11:34 AM EST Patient [place] [facility] [facility] [place] for eval of abd pain and hematoma. She states she continues to experience abdominal pain daily. Per patient, pain is present now but very mild. She reports fever, chills and nausea x4 days ago but denies symptoms now. Patient reports taking motrin with mild pain relief. Patient is requesting a f/u with PCP only to discuss ED visit and f/u on hematoma. Patient has not yet completed the imaging that was ordered by PCP in December. CM working on scheduling these for the patient. Patient is aware of the walk in center and hours of operation but would like to schedule f/u with PCP. Please contact patient at [phone]. Thank you! documented in this encounter Plan of Treatment Upcoming Encounters Date Type Department Care Team ([facility] st Contact Info) Description 05/18/2024 4:00 PM EDT Office Visit [facility] MEDICINE [address] [place] [phone] Linh Pan MD [address] [place] [phone] documented as of this encounter Visit Diagnoses Not on filedocumented in this encounter Additional Health Concerns Assessment Noted Time PHQ-9 Depression Total Score: 12 025 11:57 AM EST documented as of this encounter Care Teams [employer] Supervisor Relationship Specialty Start Date End Date Linh Pan MD [address] [place] [phone] PCP - General Family Medicine 01/29/23 Meghan Kinsey RN [address] [place] [phone] Organizational Development SpecialistCrossing Supervisor 04/25/24 documented as of this encounter
[2024-04-26 14:11] LABS: MANUAL DIFF FLAG NO
[2024-04-26 14:21] LABS: Basophils Percent Auto 0.4 % (0-2); Eosinophils Absolute Auto 0.3 X10*3/uL (0.0-0.4); Eosinophils Percent Auto 3.8 % (0-4); Hematocrit 35.3 % (37.0-47.0); Hemoglobin 11.2 g/dl (12.0-16.0); Imm Gran Abs Auto 0.02 X10*3/uL (0.00-0.03); Imm Gran Pct Auto 0.3 % (0.0-0.4); Lymphocytes Absolute Auto 1.9 X10*3/uL (1.2-4.9); Lymphocytes Percent Auto 24.7 % (20-40); Mean Corpuscular HGB Conc 31.7 g/dl (31.0-35.0); Mean Corpuscular Hemoglobin 22.9 pg (27.0-33.0); Mean Corpuscular Volume 72.2 fL (80.0-98.0); Mean Platelet Volume 9.9 fL (9.4-12.3); Monocytes Absolute Auto 0.8 X10*3/uL (0.1-1.2); Neutrophils Absolute Auto 4.8 x10*3/uL (2.0-8.3); Neutrophils Percent Auto 60.8 % (45-73); Platelet Count 421 X10*3/uL (160-400); Red Blood Count 4.89 X10*6/uL (4.20-5.50); Red Cell Distribution Width 17.2 % (11.0-16.0); White Blood Count 7.9 X10*3/uL (4.8-10.8)
[2024-04-26 14:43] LABS: Iron 29 mcg/dL (30-160); Percent Iron Saturation 7 % (15-50); Total Iron Binding Capacity 430 mcg/dL (228-428); Unsaturated Iron Binding 401 ug/dL
[2024-04-26 14:52] LABS: Amphetamine Screen Urine Not Detected (Not Detect); Barbiturates, Urine Not Detected (Not Detect); Benzodiazepines Screen Urine Not Detected (Not Detect); Buprenorphine Scr Not Detected (Not Detect); Cannabinoid Screen Urine POSITIVE (Not Detect); Cocaine Screen Urine Not Detected (Not Detect); Fentanyl, urine Not Detected (Not Detect); Methadone Screen, Urine Not Detected (Not Detect); Opiate Screen Urine Not Detected (Not Detect); Oxycodone Screen Urine Not Detected (Not Detect); Phencyclidine Screen Urine Not Detected (Not Detect)
[2024-04-26 14:59] LABS: Ferritin 19 ng/mL (10-122); HCG Quantitative < 2 mIU/mL
[2024-04-26 15:13] LABS: Folate 7.3 ng/mL (> or = 4.0); Vitamin B12 378 pg/mL (200-900)
[2024-04-26 15:54] LABS: CT PCR NOT DETECTED (Not Detect.); NG PCR NOT DETECTED (Not Detect.)
[2024-04-27 08:07] LABS: HIV AB/AG Nonreactive (Nonreactive); HIV Num 1 0.07 S/CO (0.00-0.99)
[2024-04-27 08:08] LABS: Syphilis Screen Reactive (Nonreactive)
[2024-04-29 15:22] LABS: RPR Quantitative Reactive 1:1 (Nonreactive); T.Pallidum Particle Agg Test Reactive (Nonreactive)
== END 2024-04-26 09:54 | disposition home or self-care (01) ==
LOC: HO.CHCLDS 09:53
PROVIDERS: Registered Nurse; PCP Family Medicine; Visit Provider Family Medicine
DX: R10.84 Generalized abdominal pain (principal); F33.9 Major depressive disorder, recurrent, unspecified; Z98.51 Tubal ligation status; D50.9 Iron deficiency anemia, unspecified; Z11.3 Encounter for screening for infections with a predominantly sexual mode of transmission
CPT/HCPCS: 36415; 80307; 82607; 82728; 82746; 83540; 84702; 85025; 86592; 86780; 87389; 87491; 87591